=== PATIENT | female | born 1965 | race Caucasian/White ===

== ENCOUNTER 2023-03-04 01:01 | Emergency (ER) | payer MEDICARE ==
[2023-03-04] MEDS ORDERED: Sodium Chloride 0.9% 10 ML Syringe IV ONE (01:02)
[2023-03-04] MEDS ORDERED: Midazolam 1 MG/ML 2 ML SDV IV ONE (01:02)
[2023-03-04] MEDS ORDERED: fentaNYL 100 MCG/2 ML SDV IV ONE (01:02)
[2023-03-04] MEDS ORDERED: Succinylcholine 200 MG/10 ML MDV IV ONE (01:02)
[2023-03-04] MEDS ORDERED: Rocuronium 100 MG/10 ML MDV IV ONE (01:02)
[2023-03-04] MEDS ORDERED: Propofol 200 MG/20 ML SDV IV ONE (01:02)
[2023-03-04] MEDS ORDERED: Sodium Chloride 0.9% 10 ML Syringe FLUSH PRN (01:06)
[2023-03-04 01:18] LABS: BASOPHILS PERCENT AUTO 0.1 % (0.0-1.0); EOSINOPHILS PERCENT AUTO 0.5 % (1.0-3.0); HEMATOCRIT 41.5 % (37.0-47.0); HEMOGLOBIN 14.1 g/dL (12.0-16.0); LYMPHOCYTES PERCENT AUTO 35.6 % (20.5-50.1); MEAN CORPUSCULAR VOLUME 97.2 fL (80-100); MONOCYTES PERCENT AUTO 9.3 % (2-8); NEUTROPHILS PERCENT AUTO 54.5 % (42.2-75.2); PLATELET COUNT,PLT 273 10^3/uL (150-450); RED BLOOD CELL COUNT 4.27 10^6/uL (4.2-5.4); WHITE BLOOD CELL COUNT,WBC 14.9 10^3/uL (5.0-10.0)
[2023-03-04 01:38] LABS: A/G RATIO 0.9; ALANINE AMINOTRANSFERASE,ALT 20 U/L (14-59); ALBUMIN 3.8 g/dL (3.4-5.0); ALKALINE PHOSPHATASE 146 U/L (46-116); ANION GAP 14.1 mEq/L (7-13); ASPARTATE AMNIOTRANSFERASE,AST 15 U/L (15-37); BILIRUBIN TOTAL 0.3 mg/dL (0.2-1.0); BLOOD UREA NITROGEN,BUN 17 mg/dL (7-18); CALCIUM 8.9 mg/dL (8.5-10.1); CARBON DIOXIDE,CO2 22 mmol/L (21-32); CHLORIDE,CL 104 mmol/L (98-107); CREATININE 0.81 mg/dL (0.55-1.02); GLUCOSE RANDOM 125 mg/dL (70-99); POTASSIUM,K 4.1 mmol/L (3.5-5.1); PROTEIN TOTAL,TP 7.8 g/dL (6.4-8.2); SODIUM,NA 136 mmol/L (136-145)
[2023-03-04 01:40] LABS: ESTIMATED GFR 85 mL/min (>=60)
[2023-03-04 01:47] LABS: INR 0.8 (0.9-1.2); PROTHROMBIN TIME 8.5 SEC (9.0-12.0); PTT,PARTIAL THROMBOPLSTIN TIME 21.9 SEC (22.0-34.0)
[2023-03-04] MEDS ORDERED: Midazolam 1 MG/ML 2 ML SDV ONE ×3 (01:53→03:09)
[2023-03-04] MEDS ORDERED: fentaNYL 100 MCG/2 ML SDV ONE ×2 (02:04→03:11)
[2023-03-04] MEDS ORDERED: Midazolam 50 MG in Sodium Chloride 0.9% 40 ML IV SCH (02:15)
[2023-03-04] MEDS ORDERED: Propofol 200 MG/20 ML SDV IVPUSH ONE (02:25)
[2023-03-04] MEDS ORDERED: Succinylcholine 200 MG/10 ML MDV IVPUSH ONE (02:26)
[2023-03-04] MEDS ORDERED: fentaNYL 500 MCG in Sodium Chloride 0.9% 50 ML IV SCH (02:30)
[2023-03-04] MEDS ORDERED: Rocuronium 100 MG/10 ML MDV IVPUSH ONE (02:30)
[2023-03-04 02:32] LABS: O2 DELIVERY DEVICE RESUSCITATION BAG
[2023-03-04 02:36] LABS: BICARBONATE,ARTERIAL 19.8 mmol/L (22-26); O2 SATURATION ARTERIAL 97 % (95-100); PCO2 ARTERIAL 36 mmHg (35-45); PH,ARTERIAL 7.36 (7.35-7.45); PO2 ARTERIAL 87 mmHg (70-100)
[2023-03-04 02:37] LABS: BASE EXCESS ARTERIAL -5 mmol/L ((-2)-(+3))
[2023-03-04] MEDS ORDERED: Midazolam 5 MG/ML 10 ML MDV ONE (02:43)
[2023-03-04 02:49] LABS: APPEARANCE,URINE CLEAR (CLEAR); BILIRUBIN,URINE NEGATIVE (NEGATIVE); COLOR,URINE YELLOW (YELLOW); GLUCOSE,URINE NEGATIVE (NEGATIVE); KETONES,URINE NEGATIVE (NEGATIVE); LEUKOCYTE ESTERASE,URINE NEGATIVE (NEGATIVE); NITRITE,URINE NEGATIVE (NEGATIVE); OCCULT BLOOD,URINE NEGATIVE (NEGATIVE); PH,URINE 5.5 (5.0-9.0); PROTEIN,URINE NEGATIVE (NEGATIVE); UROBILINOGEN,URINE 0.2 mg/dL (0.2-1.0)
[2023-03-04] MEDS ORDERED: Midazolam 1 MG/ML 2 ML SDV IVPUSH ONE ×2 (02:50→03:11)
[2023-03-04 02:52] LABS: AMPHETAMINES,URINE NEGATIVE (NEGATIVE); BARBITURATES,URINE NEGATIVE (NEGATIVE); BENZODIAZEPINE,URINE NEGATIVE (NEGATIVE); MDMA (ECSTASY), URINE NEGATIVE (NEGATIVE); METHADONE,URINE NEGATIVE (NEGATIVE); METHAMPHETAMINES,URINE NEGATIVE (NEGATIVE); OPIATES,URINE NEGATIVE (NEGATIVE); OXYCODONE,URINE NEGATIVE (NEGATIVE); PHENCYCLIDINE,URINE NEGATIVE (NEGATIVE); TCA,URINE NEGATIVE (NEGATIVE)
[2023-03-04] MEDS ORDERED: fentaNYL 100 MCG/2 ML SDV IVPUSH ONE (03:12)
[2023-03-06 13:23] LABS: ALLEN TEST NOT PERFORMED
== END 2023-03-04 03:27 ==
LOC: DL.ED 01:01
DX: T88.4XXA Failed or difficult intubation, initial encounter (principal); D84.1 Defects in the complement system; I10 Essential (primary) hypertension; E78.00 Pure hypercholesterolemia, unspecified; Z79.899 Other long term (current) drug therapy; Z88.6 Allergy status to analgesic agent; Z88.5 Allergy status to narcotic agent; Z91.040 Latex allergy status; Z88.0 Allergy status to penicillin
CPT/HCPCS: 31500; 36415; 36430; 36600; 43752; 51702; 71045; 80053; 80305-QW; 81003; 82803; 85025; 85610; 85730; 86900; 86901; 99152; 99285; 99285-25; J0330; J2250; J2704; J3010; J3490; P9017